=== PATIENT | male | born 1965 | race Caucasian/White ===

== ENCOUNTER 2020-07-11 14:49 | Observation (INO) | payer OTHER ==
[~2020-07-11] VITALS: Ht 182.9 cm; Wt 86.4 kg
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
[2020-07-11 15:57] LABS: BASOPHILS # (AUTO) 0.08 x10^3/uL (0-0.1); BASOPHILS % (AUTO) 1 % (0-1); EOSINOPHILS % (AUTO) 0 % (1-7); LYMPHOCYTES % (AUTO) 8 % (22-44); MD NO; MEAN CORPUSCULAR HEMOGLOBIN 29.4 pg (27.5-34.5); MEAN CORPUSCULAR HGB CONC 33.1 g/dL (33.2-36.2); MEAN CORPUSCULAR VOLUME 88.9 fL (81-97); MEAN PLATELET VOLUME 7.5 fL (7.4-10.4); MONOCYTES # (AUTO) 0.95 x10^3/uL (0.2-0.8); MONOCYTES % (AUTO) 7 % (2-9); NEUTROPHILS # (AUTO) 12.08 x10^3/uL (1.8-6.8); NEUTROPHILS % (AUTO) 85 % (42-75); PLATELET COUNT 287 x10^3/uL (130-400); RED BLOOD COUNT 5.72 x10^6/uL (4.38-5.82); RED CELL DISTRIBUTION WIDTH 13.3 % (9.4-14.8)
--- NOTE | 2020-07-11 15:58 | NUR ---
PT RESTING IN [facility]. EDUCATED ON PLAN OF CARE
[2020-07-11 16:08] LABS: ALANINE AMINOTRANSFERASE 45 U/L (12-78); ALBUMIN 4.5 g/dL (3.4-5.0); ANION GAP 9 mmol/L (5-15); CALCIUM 9.3 mg/dL (8.5-10.1); CHLORIDE 107 mmol/L (98-107); CREATININE 0.87 mg/dL (0.7-1.3)
[2020-07-11 16:13] LABS: ALKALINE PHOSPHATASE 88 U/L (45-117); BILIRUBIN,TOTAL 0.9 mg/dL (0.2-1.0); TOTAL PROTEIN 7.6 g/dL (6.4-8.2); TROPONIN I < 0.015 ng/mL (0.000-0.045)
--- NOTE | 2020-07-11 16:35 | NUR ---
SPOKE WITH MEDICAL RECORDS @ [facility] RECEIVED REQUEST WILL SEND RECORDS [phone]
[2020-07-11] MEDS: SODIUM CHLORIDE 0.9% 1,000 ML IV SCH ×2 (16:51→21:48)
[2020-07-11] MEDS ORDERED: ONDANSETRON 2MG/ML, 2ML IVPush PRN (17:00)
[2020-07-11] MEDS ORDERED: LABETALOL 5MG/ML, 20ML IVPush PRN (17:00)
[2020-07-11] MEDS ORDERED: ACETAMINOPHEN 325 MG TABLET PO PRN (17:00)
[2020-07-11] MEDS ORDERED: hydrALAzine 20 MG/ML, 1ML IVPush PRN (17:00)
[2020-07-11] MEDS ORDERED: PROMETHAZINE 25 MG/ML, 1ML IM PRN (17:00)
[2020-07-11 18:22] LABS: TROPONIN I < 0.015 ng/mL (0.000-0.045)
--- NOTE | 2020-07-11 19:02 | NUR ---
PT PROVIDED WITH AMAURI FROM THE [employer] CART
[2020-07-11] MEDS ORDERED: [UNRECOGNIZED DRUG - OTHER] (19:24)
[2020-07-11] MEDS ORDERED: KEPPRA (19:24)
[2020-07-11] MEDS ORDERED: CICL6.1H4 IH (19:53)
[2020-07-11] MEDS ORDERED: LISI-420 PO (19:53)
[2020-07-11] MEDS ORDERED: ATOR80TA PO (19:53)
[2020-07-11] MEDS ORDERED: ASPI81TA45 PO (19:53)
[2020-07-11] MEDS ORDERED: OMEP20CA20 PO (19:53)
[2020-07-11] MEDS ORDERED: LEVE100020 PO (19:53)
[2020-07-11] MEDS ORDERED: TRAZ-96 PO (19:53)
[2020-07-11 19:58] VITALS: BP 136/77
[2020-07-11] MEDS ORDERED: ATORVASTATIN 80 MG TABLET PO SCH (21:00)
[2020-07-11] MEDS ORDERED: LEVETIRACETAM 500 MG TABLET PO SCH (21:00)
[2020-07-11] MEDS ORDERED: TRAZODONE 100MG TABLET PO PRN (21:30)
[2020-07-11] MEDS ORDERED: MELATONIN 5 MG TABLET PO PRN (21:30)
[2020-07-11] MEDS: TICAGRELOR 90 MG TABLET PO SCH (21:45)
[2020-07-11] MEDS: LEVETIRACETAM 500 MG TABLET PO SCH (21:45)
[2020-07-12 00:56] VITALS: BP_SYST 118; BP_SYST 121; BP_SYST 133; BP_DIAS 75; BP_DIAS 78; BP_DIAS 82
[2020-07-12 01:17] LABS: TROPONIN I < 0.015 ng/mL (0.000-0.045)
[2020-07-12 04:55] LABS: BASOPHILS # (AUTO) 0.05 x10^3/uL (0-0.1); BASOPHILS % (AUTO) 1 % (0-1); EOSINOPHILS % (AUTO) 0 % (1-7); LYMPHOCYTES # (AUTO) 1.45 x10^3/uL (1-3.4); LYMPHOCYTES % (AUTO) 16 % (22-44); MD NO; MEAN CORPUSCULAR HGB CONC 32.9 g/dL (33.2-36.2); MEAN CORPUSCULAR VOLUME 88.2 fL (81-97); MEAN PLATELET VOLUME 7.5 fL (7.4-10.4); MONOCYTES # (AUTO) 0.87 x10^3/uL (0.2-0.8); MONOCYTES % (AUTO) 10 % (2-9); NEUTROPHILS # (AUTO) 6.47 x10^3/uL (1.8-6.8); NEUTROPHILS % (AUTO) 73 % (42-75); PLATELET COUNT 265 x10^3/uL (130-400); RED BLOOD COUNT 5.15 x10^6/uL (4.38-5.82); RED CELL DISTRIBUTION WIDTH 13.4 % (9.4-14.8)
[2020-07-12 04:56] LABS: ALANINE AMINOTRANSFERASE 35 U/L (12-78); ALBUMIN 3.5 g/dL (3.4-5.0); ANION GAP 4 mmol/L (5-15); CHLORIDE 111 mmol/L (98-107); CREATININE 0.71 mg/dL (0.7-1.3)
[2020-07-12 05:01] LABS: ALKALINE PHOSPHATASE 70 U/L (45-117); BILIRUBIN,TOTAL 1.1 mg/dL (0.2-1.0); TOTAL PROTEIN 6.3 g/dL (6.4-8.2); TROPONIN I < 0.015 ng/mL (0.000-0.045)
[2020-07-12] MEDS: SODIUM CHLORIDE 0.9% 1,000 ML IV SCH (06:32)
[2020-07-12 07:50] VITALS: BP 136/79
[2020-07-12] MEDS: TICAGRELOR 90 MG TABLET PO SCH (08:32)
[2020-07-12] MEDS: LEVETIRACETAM 500 MG TABLET PO SCH (08:33)
[2020-07-12] MEDS ORDERED: LISINOPRIL 10 MG TABLET PO SCH (09:00)
[2020-07-12] MEDS ORDERED: LEVETIRACETAM 500 MG TABLET PO SCH (09:00)
[2020-07-12] MEDS ORDERED: ASPIRIN 81 MG TABLET CHEW PO SCH (09:00)
[2020-07-12] MEDS ORDERED: TRAZODONE 50MG TABLET PO SCH (21:00)
[2020-07-13] MEDS ORDERED: OMEPRAZOLE 20 MG CAPSULE.DR PO SCH (09:00)
[2020-07-13] MEDS ORDERED: LISINOPRIL 20 MG TABLET PO SCH (09:00)
== END 2020-07-12 14:30 | disposition home or self-care (01) ==
LOC: ED 16:30 → EDIP 16:31 → INTOOBSV 16:31 → ED 17:19 → 5SO 19:40 → DCLOUNGE 07-12 14:26
PROVIDERS: ADMIT Hospitalist; ATTEND Internal Medicine
DX: R55 Syncope and collapse (principal); R00.1 Bradycardia, unspecified; D72.829 Elevated white blood cell count, unspecified; I21.9 Acute myocardial infarction, unspecified; J45.909 Unspecified asthma, uncomplicated; K21.9 Gastro-esophageal reflux disease without esophagitis; G40.909 Epilepsy, unspecified, not intractable, without status epilepticus; I24.9 Acute ischemic heart disease, unspecified; E78.5 Hyperlipidemia, unspecified; R94.31 Abnormal electrocardiogram [ECG] [EKG]; Z82.49 Family history of ischemic heart disease and other diseases of the circulatory system; Z87.891 Personal history of nicotine dependence; Z79.82 Long term (current) use of aspirin; Z79.899 Other long term (current) drug therapy; Z95.5 Presence of coronary angioplasty implant and graft
CPT/HCPCS: 36415; 71045; 80053; 83735; 84484; 85025; 93005; 93306; 93356; 93880; 96360; 96361; 99285; G0378; J7030